=== PATIENT | male | born 1970 | race American Indian/Alaskan Native ===

== ENCOUNTER 2018-04-17 15:40 | Emergency (ER) | payer SELFPAY ==
[2018-04-17 16:25] VITALS: TEMP 98.5; O2SAT 99
[2018-04-17 16:27] VITALS: BMI 24.3
--- NOTE | 2018-04-17 16:39 | ED PDOC ---
Arrival/HPI - General Historian: Patient - History of Present Illness Time/Duration: < week Symptom Course: Intermittent Activities at Onset: Other (Standing during work) Context: Work <FidelBj - Last Filed: 04/17/18 16:35> <MalgorzatajeffSukumar - Last Filed: 04/17/18 17:02> - General Time Seen by Provider: 04/17/18 15:41 - History of Present Illness Narrative History of Present Illness (Text): 04/17/18 16:36 This is a 47 year old male with PMH of gout presenting to the ER for work note and prescription for naproxen. He admits to having symptoms of gout on his left great toe for 3 days since running out of naproxen and was unable to schedule appointment with his PCP this week. He admits to pain rated at 7/10 on left great toe, non radiating and worse with walking. He states that current symptoms are similar to past gout. He denies fevers, chills, nausea, vomiting, headaches, urinary complaints, muscle weakness, loss of sensation, blood in stool or urine, recent sickness and recent travel. PCP is Dr. Valero on [address] [facility] ([facility]) Past Medical History - Provider Review Nursing Documentation Reviewed: Yes - Infectious Disease Hx of Infectious Diseases: None - Tetanus Immunization Tetanus Immunization: Up to Date - Cardiac Hx Cardiac Disorders: No - Pulmonary Hx Respiratory Disorders: No - Neurological Hx Neurological Disorder: No - HEENT Hx HEENT Disorder: No - Renal Hx Renal Disorder: No - Endocrine/Metabolic Hx Endocrine Disorders: No - Hematological/Oncological Hx Blood Disorders: No - Integumentary Hx Dermatological Disorder: No - Musculoskeletal/Rheumatological Hx Musculoskeletal Disorders: Yes Hx Gout: Yes - Gastrointestinal Hx Gastrointestinal Disorders: No - Genitourinary/Gynecological Hx Genitourinary Disorders: No - Psychiatric Hx Psychophysiologic Disorder: No Hx Substance Use: No - Past Surgical History Past Surgical History: No Previous - Suicidal Assessment Feels Threatened In Home Enviroment: No <Bj Parra - Last Filed: 04/17/18 16:35> Family/Social History - Physician Review Nursing Documentation Reviewed: Yes Family/Social History: Unknown Family HX Smoking Status: Never Smoked Hx Alcohol Use: Yes Frequency of alcohol use: Socially Hx Substance Use: No Hx Substance Use Treatment: No <Bj Parra - Last Filed: 04/17/18 16:35> Allergies/Home Meds <Bj Parra - Last Filed: 04/17/18 16:35> <Sukumar Stahl - Last Filed: 04/17/18 17:02> Allergies/Adverse Reactions: Allergies No Known Allergies Allergy (Verified 03/23/13 11:08) Home Medications: Home Meds Medication Instructions Recorded Confirmed Allopurinol 300 mg PO 06/09/13 06/09/13 Ibuprofen 200 mg PO 06/09/13 06/09/13 Naproxen [Naprosyn] 500 mg PO 06/09/13 06/09/13 Review of Systems - Physician Review All systems were reviewed & negative as marked: Yes - Review of Systems Constitutional: Normal. absent: Fevers Eyes: Normal. absent: Vision Changes ENT: Normal. absent: Hearing Changes Respiratory: Normal. absent: SOB Cardiovascular: Normal. absent: Chest Pain Gastrointestinal: Normal. absent: Abdominal Pain, Constipation, Diarrhea, Nausea, Vomiting, Hematochezia, Hematemesis Genitourinary Male: Normal. absent: Dysuria, Frequency, Hematuria Musculoskeletal: Normal Skin: Other (left foot, great toe pain and swelling) Neurological: Normal. absent: Headache Psychiatric: Normal <Bj Parra - Last Filed: 04/17/18 16:35> Physical Exam Vital Signs Reviewed: Yes Temperature: Afebrile Blood Pressure: Normal Pulse: Regular Respiratory Rate: Normal Appearance: Positive for: Well-Appearing, Non-Toxic, Comfortable Pain Distress: None Mental Status: Positive for: Alert and Oriented X 3 - Systems Exam Head: Present: Atraumatic, Normocephalic Pupils: Present: PERRL Extroacular Muscles: Present: EOMI Conjunctiva: Present: Normal Mouth: Present: Moist Mucous Membranes Neck: Present: Normal Range of Motion Respiratory/Chest: Present: Clear to Auscultation, Good Air Exchange. No: Respiratory Distress, Accessory Muscle Use Cardiovascular: Present: Regular Rate and Rhythm, Normal S1, S2. No: Murmurs Abdomen: Present: Normal Bowel Sounds. No: Tenderness, Distention, Peritoneal Signs, Rebound, Guarding Back: Present: Normal Inspection Upper Extremity: Present: Normal Inspection. No: Cyanosis, Edema Lower Extremity: Present: Normal Inspection, NORMAL PULSES, Other (Left foot great toe mild tenderness and swelling present. Manipulation of left foot great toe does not increase pain.). No: Edema, CALF TENDERNESS Neurological: Present: GCS=15, Speech Normal, Motor Func Grossly Intact, Normal Sensory Function Skin: Present: Warm, Dry. No: Rashes Psychiatric: Present: Alert, Oriented x 3, Normal Insight, Normal Concentration <Bj Parra - Last Filed: 04/17/18 16:35> Vital Signs Temp Pulse Resp BP Pulse Ox 04/17/18 16:56 86 16 121/89 99 04/17/18 16:25 98.5 F 89 17 130/76 99 Medical Decision Making <Bj Parra - Last Filed: 04/17/18 16:35> <Sukumar Stahl - Last Filed: 04/17/18 17:02> ED Course and Treatment: 04/17/18 16:43 Impression: This is a 47 year old male with PMH of gout presenting to the ER for work note and prescription for naproxen. Differential not limited to: Left foot great toe bunion vs gout Plan: -Naproxen for 7 days -Work note Progress: Patient is resting comfortably, vital signs are stable and afebrile. Patient expresses verbal consent to follow up with PCP. (Bj Parra) 04/17/18 17:00 Reyes Roy is a 47 year old female presents to the emergency room requesting a work note and prescription for Naproxen. In agreement with resident note, which includes further HPI details. Patient was seen and evaluated with resident, came up with plan and treatment together. (Sukumar Stahl) - PA / PATTERNMAKER PLASTER / Resident Statement MD/DO has reviewed & agrees with the documentation as recorded. MD/DO has examined the patient and agrees with the treatment plan. <Bj Parra - Last Filed: 04/17/18 16:35> - Scribe Statement The provider has reviewed the documentation as recorded by the Scribe <Sukumar Stahl - Last Filed: 04/17/18 17:02> - Scribe Statement Holly Gaviria Provider Scribe Attestation: All medical record entries made by the Scribe were at my direction and personally dictated by me. I have reviewed the chart and agree that the record accurately reflects my personal performance of the history, physical exam, medical decision making, and the department course for this patient. I have also personally directed, reviewed, and agree with the discharge instructions and disposition. (Sukumar Stahl) Disposition/Present on Arrival - Present on Arrival Any Indicators Present on Arrival: No History of DVT/PE: No History of Uncontrolled Diabetes: No Urinary Catheter: No History of Decub. Ulcer: No History Surgical Site Infection Following: None - Disposition Have Diagnosis and Disposition been Completed?: Yes Disposition Time: 17:00 Patient Plan: Discharge <Bj Parra - Last Filed: 04/17/18 16:35> <Sukumar Stahl - Last Filed: 04/17/18 17:02> - Disposition Diagnosis: Bunion of great toe of left foot Disposition: HOME/ ROUTINE Condition: GOOD Discharge Instructions (ExitCare): Bunion (DC) Additional Instructions: REYES ROY, thank you for letting us take care of you today. Your provider was and you were treated for LEFT FOOT. The emergency medical care you received today was directed at your acute symptoms. If you were prescribed any medication, please fill it and take as directed. It may take several days for your symptoms to resolve. Return to the Emergency Department if your symptoms worsen, do not improve, or if you have any other problems. Please contact your doctor or call one of the physicians/clinics you have been referred to that are listed on the Patient Visit Information form that is included in your discharge packet. Bring any paperwork you were given at discharge with you along with any medications you are taking to your follow up visit. Our treatment cannot replace ongoing medical care by a primary care provider outside of the emergency department. Thank you for allowing the [facility] team to be part of your care today. Please follow up with your PCP. Return to ED for any worsening symptoms including chest pain, shortness of breath and high fever. Prescriptions: Naproxen 500 mg PO BID PRN 7 Days #14 tab PRN Reason: Pain, Moderate (4-7) Referrals: Starla Alegria DO [Primary Care Provider] - Follow up with primary Forms: WORK NOTE
[2018-04-17 16:57] VITALS: BP 121/89; PULSE 86; RESP 16
== END 2018-04-17 16:56 | disposition home or self-care (01) ==
LOC: ED 15:40
DX: M21.612 Bunion of left foot (principal)

== ENCOUNTER 2018-11-02 07:07 | Emergency (ER) | payer SELFPAY ==
[2018-11-02 07:07] VITALS: BMI 24.3
--- NOTE | 2018-11-02 07:27 | ED PDOC ---
Arrival/HPI <Martin Stewart - Last Filed: 11/02/18 08:36> - General Historian: Patient - History of Present Illness Narrative History of Present Illness (Text): 11/02/18 08:09 47M w/ a PMH of gout presented to [facility] ED on 11/02 w/ c/o L foot pain w/ associated lumbar pain x1mo Patient reports that his L foot pain is a numbness/tingling sensation which starts in his first toe and has started affecting the other digits of the foot. Patient has some mild pain at baseline in his L foot. Pain is intermittent feels similar mildly worse than his previous gout episodes. Is able to ambulate w/ only very mild difficulty. Patient also reported LBP over the past month with so me radiation into BL LE; patient reports he lifts heavy objects at work; pain is a aching sensation which comes and goes. Upon ROS: Denies any numbness/tingling in his anogenital region, bowel incon tinence, bladder incontinence, encoperesis, urinary retention. Denies any F/Chills, SOB, CP, Palpitations, Abd pain, N/V/d/C PMH: Gout Social: EtOH - 1-2 beers weekly, Denies Tobacco Use, Cocaine use 6mo ago FamHx: Non Contributary Time/Duration: Prior to Arrival Symptom Onset: Gradual Symptom Course: Unchanged, Worsening Quality: Pressure Severity Level: Mild Activities at Onset: Other <Trevor Sanderson - Last Filed: 11/02/18 09:38> - General Chief Complaint: Back Pain Time Seen by Provider: 11/02/18 08:09 Past Medical History - Provider Review Nursing Documentation Reviewed: Yes - Infectious Disease Hx of Infectious Diseases: None - Tetanus Immunization Tetanus Immunization: Up to Date - Cardiac Hx Cardiac Disorders: No - Pulmonary Hx Respiratory Disorders: No - Neurological Hx Neurological Disorder: No - HEENT Hx HEENT Disorder: No - Renal Hx Renal Disorder: No - Endocrine/Metabolic Hx Endocrine Disorders: No - Hematological/Oncological Hx Blood Disorders: No - Integumentary Hx Dermatological Disorder: No - Musculoskeletal/Rheumatological Hx Musculoskeletal Disorders: Yes Hx Gout: Yes - Gastrointestinal Hx Gastrointestinal Disorders: No - Genitourinary/Gynecological Hx Genitourinary Disorders: No - Psychiatric Hx Psychophysiologic Disorder: No Hx Substance Use: No - Past Surgical History Past Surgical History: No Previous - Suicidal Assessment Feels Threatened In Home Enviroment: No <Trevor Sanderson Last Filed: 11/02/18 09:38> Family/Social History Family/Social History: Unknown Family HX Smoking Status: Never Smoked Hx Alcohol Use: Yes Hx Substance Use: Yes (Cocaine) Hx Substance Use Treatment: No <Trevor Sanderson Last Filed: 11/02/18 09:38> Allergies/Home Meds <Martin Stewart - Last Filed: 11/02/18 08:36> <Trevor Sanderson - Last Filed: 11/02/18 09:38> Allergies/Adverse Reactions: Allergies No Known Allergies Allergy (Verified 03/23/13 11:08) Home Medications: Home Meds Medication Instructions Recorded Confirmed Allopurinol [Zyloprim] 300 mg PO DAILY 11/02/18 11/02/18 Review of Systems - Patients Enrolled in [employer] [X]: A conversation was conducted with the primary medical doctor. - Review of Systems Constitutional: Normal Eyes: Normal ENT: Normal Respiratory: Normal Cardiovascular: Normal Gastrointestinal: Normal Genitourinary Male: Normal Musculoskeletal: Back Pain, Joint Swelling, Other (LLE pain ) Neurological: Normal <Trevor Sanderson Last Filed: 11/02/18 09:38> Physical Exam Vital Signs Temp Pulse Resp BP Pulse Ox 11/02/18 07:16 97.9 F 80 20 109/74 99 - Systems Exam Back: Present: Normal Inspection. No: CVA Tenderness, Midline Tenderness, Pain with Leg Raise, Decubitus Ulcer Upper Extremity: Present: Normal ROM, NORMAL PULSES, Neurovascularly Intact Lower Extremity: Present: NORMAL PULSES, Other <Martin Stewart - Last Filed: 11/02/18 08:36> Vital Signs Reviewed: Yes Vital Signs Temp Pulse Resp BP Pulse Ox 11/02/18 07:16 97.9 F 80 20 109/74 99 Temperature: Afebrile Blood Pressure: Normal Pulse: Regular Appearance: Positive for: Well-Appearing, Non-Toxic Pain Distress: None Mental Status: Positive for: Alert and Oriented X 3 - Systems Exam Head: Present: Atraumatic, Normocephalic Pupils: Present: PERRL Extroacular Muscles: Present: EOMI Mouth: Present: Moist Mucous Membranes Respiratory/Chest: Present: Clear to Auscultation. No: Respiratory Distress Cardiovascular: Present: Regular Rate and Rhythm, Normal S1, S2. No: Murmurs Abdomen: Present: Normal Bowel Sounds. No: Tenderness, Distention Back: No: Midline Tenderness, Pain with Leg Raise Upper Extremity: Present: Normal Inspection Lower Extremity: Present: NORMAL PULSES, Capillary Refill < 2 s, Other (BL bunion noted on medial aspect of feet, inflammation of digits 1-3-4 on L noted; no significant tenderness to palpation, no erythema appreciated, Patient able to discern positional changes of toes bilaterally) Neurological: Present: GCS=15, CN II-XII Intact Skin: Present: Warm, Dry, Normal Color Psychiatric: Present: Alert, Oriented x 3 <Trevor Sanderson - Last Filed: 11/02/18 09:38> Medical Decision Making ED Course and Treatment: 11/02/18 08:30 47 year old male presents to the ED for evaluation of low back pain for past month. In agreement with resident note which contains more details about the patient. Patient seen and evaluated with resident. Came up with plan and treatment together. - RAD Interpretation Radiology Orders: 11/02/18 08:09 CERVICAL SPINE AP & LATERAL [RAD] Stat 11/02/18 08:13 DORSAL (THORACIC) SPINE [RAD] Stat 11/02/18 08:14 LS SPINE AP/LAT [RAD] Stat - Medication Orders Current Medication Orders: Naproxen (Anaprox Ds) 550 mg PO BID JULIET Discontinued Medications Naproxen (Anaprox Ds) 550 mg PO BID JULIET <Martin Stewart - Last Filed: 11/02/18 08:36> ED Course and Treatment: 11/02/18 08:22 No s/s of cauda equina syndrome on exam Mild inflammatory changes noted on feet; L> R Diffx: gout vs vertebral disk herniation Will admin naproxen + obtain Lumbar xr Patient is noncompliant w/ lifestyle modifications required for management of gout. - RAD Interpretation Narrative RAD Interpretations (Text): 11/02/18 09:28 No acute findings on Lumbosacral XR <Trevor Sanderson - Last Filed: 11/02/18 09:38> - PA / DEPARTMENT DIRECTOR / Resident Statement / has reviewed & agrees with the documentation as recorded. / has examined the patient and agrees with the treatment plan. <Martin Stewart - Last Filed: 11/02/18 08:36> Disposition/Present on Arrival <Martin Stewart - Last Filed: 11/02/18 08:36> - Present on Arrival Any Indicators Present on Arrival: No History of DVT/PE: No History of Uncontrolled Diabetes: No Urinary Catheter: No History of Decub. Ulcer: No History Surgical Site Infection Following: None - Disposition Have Diagnosis and Disposition been Completed?: Yes Disposition Time: 09:27 Patient Plan: Discharge <SandersonRejiTrevor - Last Filed: 11/02/18 09:38> - Disposition Diagnosis: Gout, Sciatica Disposition: HOME/ ROUTINE Patient Problems: Current Active Problems Problem Status Onset Gout Acute Sciatica Acute Condition: STABLE Discharge Instructions (ExitCare): Gout, Lifestyle Changes to Manage Gout, Sciatica (DC), Sciatica Exercises Additional Instructions: You stated you did not have a primary care doctor, please follow up with Dr. Nika León at [facility] Please follow up with Dr. Sunil Wiggins - Orthopedic Doctor - for lower back pain Please take Naproxen 550mg two times a day for foot pain Prescriptions: Naproxen [Anaprox DS] 550 mg PO BID #14 tab Referrals: Nika León MD [Medical Doctor] - Follow up with primary Feliciano Barber MD [Staff Provider] - Follow up with primary Forms: [employer] (Kyrgyz), WORK NOTE
[2018-11-02] MEDS ORDERED: Naproxen 550 mg Tab PO SCH ×2 (08:16→10:00)
[2018-11-02 10:11] VITALS: BP 106/72; PULSE 74; RESP 14; TEMP 97.5; O2SAT 98
--- NOTE | 2018-11-02 12:46 | RAD ---
Date of service: 11/02/2018 PROCEDURE: Radiographs of the Lumbar Spine. HISTORY: BACK PAIN COMPARISON: No prior. FINDINGS: BONES: Normal alignment. No listhesis. No fracture. DISC SPACES: Disc degeneration at L5-S1 OTHER FINDINGS: None. IMPRESSION: Disc degeneration at L5-S1
== END 2018-11-02 10:11 | disposition home or self-care (01) ==
LOC: ED 07:07
DX: M10.9 Gout, unspecified (principal); M54.30 Sciatica, unspecified side